=== PATIENT | female | born 1955 | race Caucasian/White ===

== ENCOUNTER 2024-09-12 12:01 | Emergency (ER) | payer MEDICARE ==
[~2024-09-12] VITALS: Ht 162.6 cm; Wt 126.6 kg
--- NOTE | 2024-09-12 12:19 | ERN ---
ED Note History of Present Illness Stated Complaint: FLU SYM Chief Complaint: Flu Symptoms Time Seen by MD: 12:10 Dictation: PATIENT IS A 69-YEAR-OLD FEMALE COMING IN TODAY WITH COMPLAINTS OF HAVING DIFFUSE ABDOMINAL PAIN CRAMPING THAT IS COLICKY ONSET STARTED LAST SUNDAY. SHE HAS HAD INTERMITTENT FEVER AND CHILLS WITH T-MAX 102. SHE STATES THE SYMPTOMS STARTED LAST SUNDAY WHEN SHE HAD A POT LUCK DINNER AT THE [facility] WHERE SHE LIVES. SHE STATES SHE FELT BAD THEN THEN, THEY WENT TO THE [place] AND HAD SHRIMP AND SHE SAID SHE FELT WORSE. STARTING LAST SUNDAY SHE HAD ABDOMINAL CRAMPING NAUSEA VOMITING WITH BODY CHILLS. SHE STATES SHE HAS NEVER FELT THE SAME SINCE AND DOES NOT FEEL THE SAME WAY NOW. SHE DENIES CHEST PAIN BACK PAIN SOB AFEBRILE IN TRIAGE IS COMPLAINING OF DIFFUSE ABDOMINAL CRAMPING, AND IS TENDER TO THE RIGHT LOWER QUADRANT. Allergies: Coded Allergies: Sulfa (Sulfonamide Antibiotics) (Unverified Allergy, Unknown, 09/12/24) Past Medical History Past Medical History: Anxiety, GERD, TIA Surgical History: None PSYCH History: no pertinent psych hx History: Not Applicable RN Note Reviewed/Agreed w/PFSH: Yes Review of System Dictation CONSTITUTIONAL: NEGATIVE EXCEPT FOR HPI HEAD/FACE: NEGATIVE EXCEPT FOR HPI EENT: NEGATIVE EXCEPT FOR HPI RESPIRATORY: NEGATIVE EXCEPT FOR HPI GASTROINTESTINAL/ABDOMINAL: NEGATIVE EXCEPT FOR HPI ABDOMINAL CRAMPING WITH NAUSEA, RIGHT LOWER QUADRANT TENDERNESS GENITOURINARY: NEGATIVE EXCEPT FOR HPI MUSCULOSKELETAL: NEGATIVE EXCEPT FOR HPI INTEGUMENTARY: NEGATIVE EXCEPT FOR HPI NEUROLOGICAL/PSYCH: NEGATIVE EXCEPT FOR HPI HEMATOLOGIC/LYMPHATIC: NEGATIVE EXCEPT FOR HPI ALL SYSTEMS NEGATIVE, EXCEPT NOTED ABOVE. 13 POINT REVIEW OF SYSTEMS ASSESSED AND ALL NEGATIVE EXCEPT FOR ABOVE. Initial Vital Sign VS Vital Signs Date Time Temp Pulse Resp B/P (MAP) Pulse Ox O2 Delivery O2 Flow Rate FiO2 09/12/24 12:02 97.3 70 18 131/75 97 Physical Exam Dictation VITAL SIGNS REVIEWED GENERAL APPEARANCE: ALERT, ORIENTED X 3, MILD ACUTE DISTRESS, WELL DEVELOPED, NOURISHED. HEAD AND FACE: NON-TRAUMATIC. EYES: PERRL, PINK CONJUNCTIVAS, EYELID NO TRAUMA, ANTERIOR CHAMBER WITH ARCUS SENILIS. EARS: PINNAS INTACT AND NO SIGNS OF TRAUMA OR ERYTHEMA EAR CANALS CLEAR AND NO DISCHARGE TM NO ERYTHEMA NOSE: NO DISCHARGE, NO BLEEDING. OROPHARYNX: MOUTH NORMAL, TONGUE PINK, PHARYNX CLEAR,NO ERYTHEMA, TONSILS NO EXUDATES, NO ABSCESSES NOTED, MUCOUS MEMBRANE MOIST NECK: SUPPLE, NON-TENDER, NO THYROMEGALY, NO MASSES, NO JVD, NO BRUITS BREAST:DEFERRED CHEST:NO TENDERNESS, NO CREPITUS, NO PARADOXICAL MOVEMENT, NO RETRACTIONS LUNGS:CLEAR, WELL-VENTILATED, SYMMETRIC, NO RALES, NO WHEEZING, NO RHONCHI, NO STRIDOR, GOOD BREATH SOUNDS BILATERALLY HEART: REGULAR RATE, REGULAR RHYTHM, NO MURMUR, NO GALLOPS VASCULAR: NO PERIPHERAL EDEMA, ABDOMEN: SOFT, POSITIVE BOWEL SOUNDS, NONDISTENDED, NO GUARDING, DIFFUSE ABDOMINAL TENDERNESS, GREATER TO THE RIGHT LOWER QUADRANT. NEGATIVE CVAT BILATERALLY RECTAL: DEFERRED GENITAL: DEFERRED NEUROLOGICAL: NORMAL SPEECH, MOTOR FUNCTION INTACT, SENSORY FUNCTION INTACT MUSCULOSKELETAL: NECK NONTENDER, FULL RANGE OF MOTION, BACK NONTENDER, FULL RANGE OF MOTION, EXTREMITIES: NONTENDER, FULL RANGE OF MOTION SKIN: COLOR PINK, DRY, NO TURGOR, NO RASH, NO LACERATIONS, NO ABRASIONS, NO CONTUSIONS. LYMPHATIC: DEFERRED Results (Laboratory/Radiology) Laboratory/Radiology Laboratory Tests Test 09/12/24 12:04 09/12/24 13:36 09/12/24 14:40 Influenza Type A Antigen Negative For Type A Influenza Type B Antigen Negative For Type B SARS-CoV-2 Antigen (Rapid) PRESUMPTIVE NEGATIVE Group A Streptococcus Rapid negative (NEGATIVE) White Blood Count 8.7 K/uL (4.8-10.8) Red Blood Count 4.64 MIL/uL (4.00-5.50) Hemoglobin 12.7 g/dL (12.0-16.0) Hematocrit 40.1 % (36-48) Mean Corpuscular Volume 86.4 fL (79-99) Mean Corpuscular Hemoglobin 27.4 pg (27.0-33.0) Mean Corpuscular Hemoglobin Concent 31.7 g/dL (32.0-36.0) L Red Cell Distribution Width 14.0 % (11.0-15.5) Platelet Count 264 K/uL (130-400) Mean Platelet Volume 11.0 fL (7.5-10.5) H Immature Granulocyte % (Auto) 0.6 % (0-1) Neutrophils (%) (Auto) 64.5 % (40.0-77.0) Lymphocytes (%) (Auto) 20.3 % (21.0-51.0) L Monocytes (%) (Auto) 10.8 % (3.0-13.0) Eosinophils (%) (Auto) 3.2 % (0.0-8.0) Basophils (%) (Auto) 0.6 % (0.0-5.0) Neutrophils # (Auto) 5.6 K/uL (1.8-7.7) Lymphocytes # (Auto) 1.8 K/uL (1.0-4.8) Monocytes # (Auto) 0.9 K/uL (0.1-1.0) Eosinophils # (Auto) 0.28 K/uL (0.00-0.70) Basophils # (Auto) 0.05 K/uL (0.00-0.20) Absolute Immature Granulocyte (auto 0.05 K/uL (0-1) Segmented Neutrophils % 73 % (40-70) H Band Neutrophils % 2 % (0-2) Lymphocytes % (Manual) 18 % (22-44) L Monocytes % (Manual) 7 % (2-9) Nucleated Red Blood Cells 0.0 % (0.0-0.19) Differential Comment MANUAL DIFFERENTIAL White Cell Morphology Comment CONSISTENT W/DIFF Platelet Morphology Comment ADEQUATE Red Blood Cell Morphology ANISO 1+ Sodium Level 143 mmol/L (136-145) Potassium Level 4.7 mmol/L (3.5-5.1) Chloride Level 106 mmol/L (101-111) Carbon Dioxide Level 32 mmol/L (21-32) Blood Urea Nitrogen 21 mg/dL (7-18) H Creatinine 1.0 mg/dL (0.5-1.0) Glomerular Filtration Rate Calc 60 mL/min (>90) Random Glucose 105 mg/dL (70-105) Lactic Acid Level 1.1 mmol/L (0.8-2.5) Total Calcium 8.4 mg/dL (8.5-10.1) L Magnesium Level 2.10 mg/dL (1.80-2.40) Troponin I High Sensitivity 4 ng/L (4-50) Urine Color YELLOW (YELLOW) Urine Appearance CLOUDY (CLEAR) H Urine pH 5.5 (5.0-8.0) Urine Specific [place] 1.015 (1.001-1.031) Urine Protein 10 mg/dL (NEGATIVE) H Urine Glucose (UA) NEGATIVE mg/dL (NEGATIVE) Urine Ketones NEGATIVE mg/dL (NEGATIVE) Urine Occult Blood +- (TRACE) (NEGATIVE) H Urine Nitrate 2+ (NEGATIVE) H Urine Bilirubin NEGATIVE mg/dL (NEGATIVE) Urine Urobilinogen 0.2 mg/dL (0.2-1.0) Urine Leukocyte Esterase 250 Coral/uL (NEGATIVE) H Urine RBC 2-5 /HPF (0-1) H Urine WBC 11-25 /HPF (0-1) H Urine Squamous Epithelial Cells MOD /HPF (0-2) Urine Transitional Epithelial Cells RARE /HPF (None Seen) Urine Bacteria MANY /HPF (None Seen) Labs Reviewed?: Yes EKG Comment: EKG SINUS BRADYCARDIA/HEART RATE 59/LEFT ATRIAL ENLARGEMENT/NO ECTOPY ED Course ED Course Orders Procedure Category Date Status Time Blood Cult GIULIA 09/12/24 In Process 12:16 Lactic Acid LAB 09/12/24 Complete 12:16 Cbc With Differential LAB 09/12/24 Complete 12:16 Urinalysis Profile LAB 09/12/24 Complete 12:16 0.9%Nacl 1000ml (Ns PHA 09/12/24 Complete 1000ml) 12:30 Ketorolac PHA 09/12/24 Complete Tromethamine 30mg/Ml 12:30 Basic Metabolic Panel LAB 09/12/24 Complete 12:16 12 Lead Ekg Tracing- EKG 09/12/24 Complete Technical 12:16 Magnesium LAB 09/12/24 Complete 12:16 Troponin I High LAB 09/12/24 Complete Sensitivity 12:16 Covid19 (Sars Antigen LAB 09/12/24 Complete Rapid) 12:16 Influenza Type A & B, LAB 09/12/24 Complete Rapid 12:24 Rapid (Group A Strep) LAB 09/12/24 Complete 12:24 Ketorolac PHA 09/12/24 Complete Tromethamine 30mg/Ml 12:27 Manual Differential LAB 09/12/24 Complete 13:36 Culture Urine GIULAI 09/12/24 In Process 15:18 Ceftriaxone 2gm Vial PHA 09/12/24 Complete (Rocephin 2gm Inj) 15:22 Current Medications Medications (Trade) Dose Ordered Sig/Arleen Route PRN Reason Start Time Stop Time Status Last Admin Dose Admin Ceftriaxone Sodium (Rocephin 2gm Inj) 2 gm ONCE STAT IVPB 09/12/24 15:22 09/12/24 15:29 DC Ketorolac Tromethamine (toRADol) 30 mg ONCE ONCE IVP 09/12/24 12:30 09/12/24 12:31 DC 09/12/24 12:33 Ketorolac Tromethamine (toRADol) 30 mg STK-MED ONCE .ROUTE 09/12/24 12:27 09/12/24 12:27 DC Sodium Chloride 1,000 ml @ 0 mls/hr ONCE ONCE IV 09/12/24 12:30 09/12/24 12:31 DC 09/12/24 12:33 Vital Signs Date Time Temp Pulse Resp B/P (MAP) Pulse Ox O2 Delivery O2 Flow Rate FiO2 09/12/24 12:02 97.3 70 18 131/75 97 Fifteen 30, patient remains hemodynamically stable no fever at this time patient has a large UTI with hematuria. Given Rocephin2 g discharged home with [id number] twice a day for seven days and told to increase your water intake. HEART Score Response (Comments) Value EKG: Repolarization changes 1 Age: > 65yrs (+2) 2 Risk Factors: No known risk factors (0) 0 Initial Troponin: Normal limit (0) 0 Total 3 Medical Decision Making MDM MDM: Differential diagnosis: Influenza/COVID/strep/urinary tract infection/viral URI/electrolyte imbalance/dehydration/ACS Rationale: Tests considered and ordered secondary to shared decision making include: EKG/labs/radiology Previous outside records reviewed: Old ER visits. Reviewed Risk of complication and/or morbidity or mortality of patient management: None Medications-Per medication reconciliation Need for hospitalization: Patient does not meet criteria for hospitalization. No Need for emergency major/minor surgery: No There are no social concerns with this patient. Prescription drug management Augmentin Prescriptions will include symptomatic care Patient's prior external medical records from other ER visits were reviewed by me as indicated. Prior testing and results from previous visits were reviewed. Prior tests were taken into account with medical decision making and resource utilization, independent historian/historians were used to obtain complete medical history. I independently interpreted the test that were performed, results were reviewed by me and considered findings on radiology if ordered. Medical management and examination interpretation discussions were had by me with other qualified healthcare professionals as indicated for the patient's care. DX & DISP Disposition: Discharge Departure Impression: Primary Impression: Acute cystitis with hematuria Additional Impression: Dehydration Condition: Stable Scripts Amoxicillin/Potassium Clav (Amox Tr-K Clv 875-125 mg Tab) 875 Mg-125 Mg Tablet 1 EACH PO BID for 7 Days, #14 TAB 0 Refills Prov: DORINDA WOOTEN NP 09/12/24 Additional Instructions: Follow-up with primary care provider in 1 to 2 days. Take medications as directed here in the emergency room. Okay to continue home medications unless otherwise discussed during your visit in the emergency room today. Return to your nearest emergency room if symptoms worsen or if there is no improvement. Call 911 if you need immediate assistance. Take Tylenol or Motrin [id number] as needed and if no contraindications are present. Increase oral hydration. A wound culture or urine culture was ordered here in the emergency room department please follow-up with primary care provider and advise them to get repeat ports from our facility. If you had any Gonzalez wrap/splints that were applied here, please do not remove them until you see your primary care or specialty. Take antibiotics as directed until gone. , increase your water intake. , see your primary care doctor in 2-3 days as needed Time of Disposition: 15:32 I have reviewed the case, and I agree with, Diagnosis and Plan DORINDA WOOTEN NP Sep 12, 2024 12:19
[2024-09-12] MEDS: 0.9%NACL 1000ML 1,000 ML IV ONE (12:33)
[2024-09-12] MEDS: ketOROlac 30MG VIAL (30MG/ML) ONE (12:33)
[2024-09-12] MEDS: ketOROlac 30MG VIAL (30MG/ML) IVP ONE (12:33)
[2024-09-12 12:49] LABS: RAPID GROUP A STREP negative (NEGATIVE)
[2024-09-12 12:59] LABS: INFLUENZA TYPE A Negative For Type A (NEGATIVE); INFLUENZA TYPE B Negative For Type B (NEGATIVE)
--- NOTE | 2024-09-12 13:46 | EKG ---
[facility] Test Date: 2024-09-12 Test Time: 13:44:28 Pat Name: SILVA CHRIS Department: ED Room: Gender: F Environment Artist: [id number] : 1955 Requested By: DORINDA WOOTEN Order Number: [id number] Reading MD: Wilian Schneider Measurements Intervals [place] Rate: 59 P: 89 MI: 170 QRS: 25 QRSD: 88 T: 27 QT: 443 QTc: 439 Interpretive Statements Sinus rhythm Probable left atrial enlargement No previous ECG available for comparison Electronically Signed On 09-14-2024 17:36:31 TELLER COORDINATOR by Wilian Schneider Please click the below link to view image of tracing.
[2024-09-12 13:53] LABS: BASOPHILS # (AUTO) 0.05 K/uL (0.00-0.20); BASOPHILS % (AUTO) 0.6 % (0.0-5.0); EOSINOPHILS # (AUTO) 0.28 K/uL (0.00-0.70); EOSINOPHILS % (AUTO) 3.2 % (0.0-8.0); HEMATOCRIT 40.1 % (36-48); IMMATURE GRANULOCYTE ABSOLUTE 0.05 K/uL (0-1); LYMPHOCYTES # (AUTO) 1.8 K/uL (1.0-4.8); LYMPHOCYTES % (AUTO) 20.3 % (21.0-51.0); MEAN CORPUSCULAR HEMOGLOBIN 27.4 pg (27.0-33.0); MEAN CORPUSCULAR HGB CONC 31.7 g/dL (32.0-36.0); MEAN CORPUSCULAR VOLUME 86.4 fL (79-99); MONOCYTES # (AUTO) 0.9 K/uL (0.1-1.0); MONOCYTES % (AUTO) 10.8 % (3.0-13.0); NEUTROPHILS # (AUTO) 5.6 K/uL (1.8-7.7); NEUTROPHILS % (AUTO) 64.5 % (40.0-77.0); PLATELET COUNT (AUTO) 264 K/uL (130-400); RED BLOOD CELL COUNT(AUTO) 4.64 MIL/uL (4.00-5.50); WHITE BLOOD COUNT (AUTO) 8.7 K/uL (4.8-10.8)
[2024-09-12 13:56] LABS: MAGNESIUM 2.1 mg/dL (1.80-2.40); POTASSIUM 4.7 mmol/L (3.5-5.1)
[2024-09-12 14:55] LABS: BAND NEUTROPHILS % (MANUAL) 2 % (0-2); LYMPHOCYTES % (MANUAL) 18 % (22-44); MAN.DIFF COMMENT-IMPRESSION MANUAL DIFFERENTIAL; MONOCYTES % (MANUAL) 7 % (2-9); SEGMENTED NEUTROPHILS % 73 % (40-70); TOTAL CELLS COUNTED 100
[2024-09-12 14:56] LABS: PLATELET MORPHOLOGY COMMENT ADEQUATE; WBC MORPHOLOGY CONSISTENT W/DIFF
[2024-09-12 15:16] LABS: APPEARANCE,URINE CLOUDY (CLEAR); BILIRUBIN,URINE NEGATIVE (NEGATIVE); COLOR,URINE YELLOW (YELLOW); GLUCOSE, URINE (UA) NEGATIVE (NEGATIVE); KETONES,URINE NEGATIVE (NEGATIVE); LEUKOCYTE ESTERASE ,URINE 250 Leu/uL (NEGATIVE); NITRATE,URINE 2+ (NEGATIVE); PH,URINE 5.5 (5.0-8.0); PROTEIN,URINE 10 mg/dL (NEGATIVE); UROBILINOGEN,URINE 0.2 mg/dL (0.2-1.0)
[2024-09-12 15:17] LABS: ADD UA MICROSCOPIC YES
[2024-09-12 15:20] LABS: BACTERIA,URINE MANY /HPF (None Seen); MUCUS,URINE RARE LPF (None Seen); SQUAMOUS EPITHELIAL CELL,UR MOD /HPF (0-2); TRANSITIONAL EPI CELLS,URINE RARE /HPF (None Seen)
[2024-09-12] MEDS ORDERED: AMOX1TAB16 PO (15:33)
[2024-09-12 15:41] VITALS: BP 132/89; PULSE 80; RESP 16; TEMP 98.2; O2SAT 99
[2024-09-12] MEDS: CEFTRIAXONE 2GM VIAL IVPB STA (15:56)
== END 2024-09-12 16:00 | disposition home or self-care (01) ==
LOC: EDH 12:01
DX: N30.01 Acute cystitis with hematuria (principal); E86.0 Dehydration; K21.9 Gastro-esophageal reflux disease without esophagitis; Z20.822 Contact with and (suspected) exposure to COVID-19; Z86.73 Personal history of transient ischemic attack (TIA), and cerebral infarction without residual deficits; Z88.2 Allergy status to sulfonamides
CPT/HCPCS: 99284; 96374; 96361; 96375; 87426; 83735; 84484; 80048; 85025; 87040 ×2; 87086 ×2; 87186; 87880; 87804 ×2; 83605; 81001; 36415; 93005; J7030; J0696; J1885